=== PATIENT | male | born 1980 | race African-American/Black ===

== ENCOUNTER 2020-05-22 23:00 | Emergency (ER) | payer SELFPAY ==
[~2020-05-22] VITALS: Ht 172.7 cm; Wt 82.0 kg
[2020-05-23] MEDS ORDERED: ACETAMINOPHEN 325MG TABLET PO ONE (00:30)
[2020-05-23 01:19] VITALS: BP 121/83
== END 2020-05-23 01:20 | disposition home or self-care (01) ==
LOC: ER 23:00
DX: R07.89 Other chest pain (principal)
CPT/HCPCS: 71045; 99283